=== PATIENT | female | born 1985 | race American Indian/Alaskan Native ===

== ENCOUNTER 2017-02-28 09:05 | Day surgery (SDC) | payer OTHER ==
[2017-02-28 12:50] VITALS: BP 142/95
--- NOTE | 2017-03-01 08:41 | Ultrasound Report ---
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 Description of procedure: A noncontrast CT neck from an outlying facility which was brought by the patient was reviewed. The exam demonstrated soft tissue density lesion in the left jaw region. It was unclear if this arises from the left parotid gland or other structures. The mass appears to exert mass effect on the left mandibular condyle with bony remodeling. This was scheduled as a CT-guided biopsy although it was revised to ultrasound-guided biopsy due to the location of this lesion. Informed consent was obtained. Sterile technique was utilized. 1% lidocaine for skin anesthesia. Initial scans demonstrated a hypoechoic mass in the left jaw region measuring up to 4.3 x 3.3 cm. Using ultrasound guidance, 3 fine needle aspirations and one Rotex biopsy was obtained. The samples were deemed borderline by the pathologist on site. The patient tolerated the procedure with mild discomfort. Impression: Successful ultrasound-guided biopsy of the left jaw/facial lesion as described.
--- NOTE | 2017-03-01 08:46 | Short Stay Summary ---
Short Stay Documentation Date of service: 03/01/17 - History Principal diagnosis: left parotid/jaw mass - Allergies and Medications Current Medications: Allergies No Known Allergies Allergy (Verified 02/28/17 09:56) Home Medications Medication Instructions Recorded Confirmed Last Taken Type Naproxen [Naproxen TAB] 250 mg PO Q6HR PRN 02/28/17 02/28/17 02/19/17 History - Physical exam General appearance: no acute distress HEENT: Other (palpable 4cm mass at angle of left jawline) Extremities: normal temperature - Brief post op/procedure progress note Date of procedure: 02/28/17 Pre-op diagnosis: left parotid mass Post-op diagnosis: same Procedure: US guided biopsy Anesthesia: local Surgeon: MARY CHAIDEZ Estimated blood loss: none Pathology: list (3 FNA, 1 rotex biopsy) Specimen disposition: to lab Condition: stable - Disposition Condition at discharge: Good Short Stay Discharge Plan Additional Instructions: Resume diet, medications and activity as prior to admission. May shower 03/01/2017. Apply ice as needed for discomfort. Do not leave on longer than 20 minutes. Report to MD any redness, increased swelling, fever or drainage. Follow up with MD for biopsy results. Follow up with: SUMANTH SAEZ MD [Primary Care Provider] - 7 Days
== END 2017-02-28 13:10 ==
LOC: CATHLABREC 09:05
PROVIDERS: ATTEND Internal Medicine
DX: K11.8 Other diseases of salivary glands (principal)
CPT/HCPCS: 20206; 76942; 88112; 88172; 88173; 88305; 88312; 88333